=== PATIENT | female | born 2005 | race Caucasian/White ===

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

== ENCOUNTER 2024-11-06 17:19 | Emergency (ER) | payer SELFPAY ==
[2024-11-06 17:29] VITALS: BP 129/85; PULSE 83; RESP 16; TEMP 36.6; O2SAT 98; BMI 33.2
[2024-11-06 18:04] VITALS: BP 134/81; PULSE 108; RESP 20; O2SAT 100
--- NOTE | 2024-11-06 18:05 | ECG_ITS ---
[facility]: 2024[facility]06 Pat Name: Benita Mendez Department: Room: Gender: Female Principal Mechanical Engineer: : 2005 Requested By: Yimi Watkins Order Number: [id number] Margie MD: Yves Meek M.D. Measurements Intervals [place] Rate: 87 P: 18 WI: 133 QRS: 55 QRSD: 98 T: 52 QT: 377 QTc: 456 Interpretive Statements SINUS RHYTHM LOW QRS VOLTAGE IN PRECORDIAL LEADS [QRS DEFLECTION < 1.0 mV IN CHEST LEADS] Compared to ECG 08/22/2020 20:14:04 Low QRS voltage now present Electronically Signed On 11-07-2024 12:12:12 CARRIER OPERATOR by Yves Meek M.D. [id number]
--- NOTE | 2024-11-06 18:06 | XRR_ITS ---
PROCEDURE INFORMATION: Exam: XR Chest Exam date and time: 11/06/2024 6:34 PM Age: 19 years old Clinical indication: Pain; Cough; Chest pressure; Additional info: Chest pain, cough TECHNIQUE: Imaging protocol: Radiologic exam of the chest. Views: 1 view. COMPARISON: CR XR chest 2V* [id number] 08/22/2020 6:55 PM FINDINGS: Lungs: Unremarkable. No consolidation. Pleural spaces: Unremarkable. No pleural effusion. No pneumothorax. Heart/Mediastinum: Unremarkable. No cardiomegaly. Bones/joints: Unremarkable. XR/XR chest 1V portable [id number] IMPRESSION: No acute findings.
--- NOTE | 2024-11-06 18:22 | W.ED.CHESTPA ---
Documented by User: ANDRE Clark 11/06/24 20:05 HPI - Chest Pain General: Chief Complaint: Chest Pain Stated Complaint: chest pains sob light headed Time Seen by Provider: 11/06/24 17:36 Source: patient Mode of arrival: ambulatory Limitations: no limitations History of Present Illness: Patient is a 19-year-old female that presents to the emergency department for chest pain, shortness of breath, cough and diffuse abdominal pain. Patient states the chest pain started about 10:00 this morning and she does not have any active chest pain at this time. She states she was seen in this emergency department about 4 years ago with similar symptoms. She denies any history of recent surgeries. She denies any history of blood clots. She denies any calf pain or tenderness but states she has had some upper thigh pain from time to time. She reports some low back pain. She denies any pain or burning with urination or blood in her urine. She has had a cough but denies any fever or chills. She states she does have some chest wall tenderness but denies any rash or blistering. She also reports some diffuse abdominal tenderness. She denies any nausea or vomiting. She presents to the emergency department for further evaluation and treatment. Associated symptoms: Reports abdominal pain (Mild diffuse abdominal pain) and dyspnea; Deny fever(s), nausea or vomiting Related Data Previous Rx's ?Medication ?Instructions ?Recorded hydroxyzine HCl 25 mg tablet 25 - 50 mg (1 - 2 x 25 mg) PO TID 11/06/24 PRN anxiety #30 tabs Allergies Allergy/AdvReac Type Severity Reaction Status Date / Time No Known Allergies Allergy Verified 11/06/24 17:35 Review of Systems Const: Denies: fever(s) or chills Eyes: Denies: change in vision, photophobia or eye redness ENMT: Denies: throat pain, ear or mastoid pain or ear discharge Card: Reports: chest pain and lightheadedness; Denies: edema Resp: Reports: dyspnea and non-productive cough; Denies: wheezing or hemoptysis GI: Reports: abdominal pain (Mild diffuse abdominal pain); Denies: nausea, vomiting or hematemesis : Denies: flank pain or dysuria Musc: Reports: back pain (Low back); Denies: neck pain Skin/Breast: Denies: rash or erythema Neuro: Denies: headache(s), numbness in extremities or weakness in extremities Psych: Reports: anxiety Endo: Denies: polyuria or polydipsia Allan/Lymph: Denies: petechiae All/Imm: Denies: throat swelling or tongue swelling PFSH ED PFSH: Medical History (Updated 11/06/24 @ 19:58 by ANDRE Clark) Chest pain Surgical History (Updated 11/06/24 @ 18:29 by ANDRE Clark) No pertinent past surgical history Social History (Updated 11/06/24 @ 18:30 by ANDRE Clark) Smoking and tobacco/nicotine status: current every day tobacco/nicotine user Physical Exam Const: COMMON NORMALS: patient oriented x3, alert and well nourished GENERAL APPEARANCE: cooperative and anxious ORIENTATION/CONSCIOUSNESS: Yes awake, Yes oriented to person, Yes oriented to place and Yes oriented to time HENMT: COMMON NORMALS: normocephalic, atraumatic, EAC's normal, TM's normal bilaterally and Normal external nose present HEAD & SCALP: normocephalic and atraumatic FACE & SINUS: normal facial exam NOSE: Normal external nose present EXTERNAL AUDITORY CANAL: EAC's normal TYMPANIC MEMBRANE: TM's normal bilaterally MOUTH: Normal oral and palatal mucosa present THROAT: posterior oropharynx normal Eye: COMMON NORMALS: Equal, round and reactive pupils present, EOMs intact bilaterally and conjunctivae normal CONJUNCTIVA: Yes conjunctivae normal PUPIL: Yes Equal, round and reactive pupils present Neck/C-Spine: COMMON NORMALS: full ROM, no lymphadenopathy, supple and no meningeal signs Chest: CHEST: Yes tenderness sternum and other (Bilateral posterior ribs mildly tender) Resp: COMMON NORMALS: normal respiratory effort and clear to auscultation bilaterally EFFORT & INSPECTION: Yes able to speak in complete sentences and No respiratory distress AUSCULTATION: clear to auscultation bilaterally, no crackles, no rales, no rhonchi and no wheezes Cardio: COMMON NORMALS: regular rhythm RATE: tachycardic (Patient is intermittently tachycardic and regular rate) RHYTHM: regular rhythm GI: COMMON NORMALS: Soft to palpation INSPECTION: No Anasarca PALPATION: Yes Soft to palpation, No Firmness to palpation present (GI), Yes Tenderness to palpation present (GI) (Mild diffuse abdominal tenderness with no guarding or rebound tenderness), No Guarding due to palpation present (GI) and No Rigid due to palpation RECTAL EXAM: deferred : COMMON NORMALS: Yes no CVA tenderness BLADDER/KIDNEY EXAM: Yes no CVA tenderness and No CVA tenderness Back/Pelvis: COMMON NORMALS: no CVA tenderness GENERAL BACK: No CVA tenderness LUMBAR SPINE/LOWER BACK: Yes lumbar spinal tenderness (Mild tenderness in the low back) and Yes paraspinal muscle tenderness Lumbar paraspinal muscle tenderness: bilateral Extremity: COMMON NORMALS: normal to inspection, full ROM, no calf tenderness and no pedal edema Neuro: COMMON NORMALS: patient oriented x3, CN's II-XII intact bilaterally, moves all extremities, no focal motor deficits and no sensory deficits noted SENSORIUM/ORIENTATION: Yes alert, Yes oriented to person, Yes oriented to place and Yes oriented to time MENINGEAL SIGNS: Yes no meningeal signs and No nuccal rigidity COORDINATION/BALANCE: [id number] test normal SPEECH: speech normal SENSORY EXAM: Yes extremities MOTOR EXAM: 5/5 motor strength present throughout and Pronator motor function not present COORDINATION: [id number]-gk-noop test normal Psych: COMMON NORMALS: cooperative, speech normal, denies homicidal ideation and denies suicidal ideation ATTITUDE: Yes calm SPEECH: Yes normal speech MOOD & AFFECT: Yes anxious (Mild) and No tearful Skin: COMMON NORMALS: no rashes or lesions noted, no wounds, no jaundice and no petechiae GENERAL SKIN EXAM: no rashes or lesions noted Course ED course: I discussed the case with Dr. Medley. He recommended getting a D-dimer since patient is low risk for PE and if that is negative she can be ruled out for PE. Vital Signs: Vital signs: Vital Signs Temperature 97.9 F 11/06/24 17:29 Pulse Rate 89 11/06/24 20:18 Respiratory Rate 16 11/06/24 20:18 Blood Pressure 134/75 11/06/24 20:18 Pulse Oximetry 96 11/06/24 20:18 Oxygen Delivery Me thod Room Air 11/06/24 20:00 MDM - Chest Pain Medical Decision Making Patient was advised of the exam, lab and imaging findings. The patient does not have an elevated white blood cell count. She was afebrile here in the emergency department. She does have some chest wall tenderness on exam. She was very anxious when she came in but that resolved after the medications. Patient's oxygen saturation has been between 98 to 100% on room air. Patient has no respiratory distress and had no wheezing on exam. Thankfully, her influenza test was negative but her COVID test did come back positive. She states she has had the cough for about 3 days. I recommended that she self quarantine and use a mask for a total of 5 days from the time her symptoms began. She may return to work at that point if she remains fever free for 24 hours prior to return and she continues to use a mask for full 10 days from the time her symptoms prescribed started. I recommended she use the hydroxyzine as directed for anxiety. She states she currently does not have a primary care provider but her friend is here with her states that they can get her in with her doctor for further evaluation and treatment. EKG did not show any sign of ST elevation and troponin was negative. D-dimer was also negative. Patient's heart rate has come down to normal after the medications. The patient expressed understanding of all discharge instructions. Medical Records I reviewed the patient's medical records. Lab Data I reviewed the patient's lab results. 11/06/24 18:23 11/06/24 18:23 Laboratory Results WBC 9.18 10^3/uL (3.29-11.43) 11/06/24 18:23 RBC 4.94 10^6/uL (3.85-5.65) 11/06/24 18:23 Hgb 14.00 g/dL (11.27-16.99) 11/06/24 18:23 Hct 41.8 % (36-47) 11/06/24 18:23 MCV 84.6 fl (85-98) L 11/06/24 18:23 MCH 28.3 pg (27-33) 11/06/24 18:23 MCHC 33.5 g/dL (30-55) 11/06/24 18:23 RDW 12.3 % (12.1-15.1) 11/06/24 18:23 Plt Count 355 10^3/cmm (157-399) 11/06/24 18:23 MPV 10.4 fL (7.4-10.4) 11/06/24 18:23 Neut % (Auto) 58.5 % 11/06/24 18:23 Lymph % (Auto) 32.7 % 11/06/24 18:23 Colleton % (Auto) 6.3 % 11/06/24 18:23 Eos % (Auto) 1.9 % 11/06/24 18:23 Baso % (Auto) 0.3 % 11/06/24 18:23 Neut # (Auto) 5.37 10^3/uL (1.8-7.7) 11/06/24 18:23 Lymph # (Auto) 3.0 10^3/uL (0.8-4.8) 11/06/24 18:23 Colleton # (Auto) 0.6 10^3/uL (0.2-0.9) 11/06/24 18:23 Eos # (Auto) 0.2 10^3/uL (0.0-0.8) 11/06/24 18:23 Baso # (Auto) 0.0 10^3/uL (0.0-0.1) 11/06/24 18:23 Nucleated RBC % (auto) 0 % 11/06/24 18: Nucleated RBCs # 0.0 /100WBC 11/06/24 18:23 D-Dimer <= 0.27 ug/mLFEU (0-0.59) 11/06/24 18:23 Sodium 140 mmol/L (136-145) 11/06/24 18:23 Potassium 3.9 mmol/L (3.5-5.1) 11/06/24 18:23 Chloride 104 mmol/L (98-107) 11/06/24 18:23 Carbon Dioxide 22 mmol/L (22-29) 11/06/24 18:23 Anion Gap 17.9 (5-19) 11/06/24 18:23 BUN 8 mg/dL (6-20) 11/06/24 18:23 Creatinine 0.8 mg/dL (0.5-0.9) 11/06/24 18:23 GFR Calculation 90.5 mL/min (90-130) 11/06/24 18:23 Glucose 105 mg/dL (65-115) 11/06/24 18:23 Calculated Osmolality 289 mOsm/kg (285-295) 11/06/24 18:23 Calcium 9.8 mg/dL (8.5-10.5) 11/06/24 18:23 Total Bilirubin 0.4 mg/dL (0.15-1.2) 11/06/24 18:23 AST 22 U/L (0-32) 11/06/24 18:23 ALT 16 U/L (0-33) 11/06/24 18:23 Alkaline Phosphatase 90 U/L (35-105) 11/06/24 18: Troponin T Baseline < 6 ng/L (0-10) 11/06/24 18:23 Total Protein 8.3 g/dL (6.6-8.7) 11/06/24 18: Albumin 4.7 g/dL (3.5-5.2) 11/06/24 18: Globulin 3.6 g/dL (1.3-4.6) 11/06/24 18: Lipase 19 U/L (13-60) 11/06/24 18:23 HCG, Qual Negative (Negative) 11/06/24 18: Urine Color Yellow (Yellow) 11/06/24 18:49 Urine Appearance Cloudy (CLEAR) A 11/06/24 18:49 Urine pH 6.0 (5-7) 11/06/24 18:49 Ur Specific Morton 1.028 (1.005-1.030) 11/06/24 18:49 Urine Protein Negative (Negative) 11/06/24 18:49 Urine Glucose (UA) Negative (Normal) 11/06/24 18:49 Urine Ketones Trace (Negative) 11/06/24 18:49 Urine Blood 1+ (Negative) A 11/06/24 18:49 Urine Nitrate Negative (Negative) 11/06/24 18:49 Urine Bilirubin Negative (Negative) 11/06/24 18:49 Urine Urobilinogen 1.0 mg/dL (Negative) 11/06/24 18:49 Ur Leukocyte Esterase Negative (Negative) 11/06/24 18:49 Urine RBC 10-15 /hpf (0-2) H 11/06/24 18:49 Urine WBC 5-10 /hpf (0-5) H 11/06/24 18:49 Ur Squamous Epith Cells 25-40 /hpf (0-5) H 11/06/24 18:49 Amorphous Sediment Not Reportable 11/06/24 18:49 Urine Bacteria 1+ /hpf (NONE) H 11/06/24 18:49 Urine Mucus 2+ /hpf 11/06/24 18:49 Influenza A (PCR) Negative (Negative) 11/06/24 18:23 Influenza Type B (PCR) Negative (Negative) 11/06/24 18:23 RSV (PCR) Negative (Negative) 11/06/24 18:23 SARS-CoV-2 (PCR) Positive (Negative) A 11/06/24 18:23 EKG Data EKG 1: I personally reviewed and interpreted this EKG as follows: Prior EKG tracings: available for review Interpretation: Rate 87, sinus rhythm, low QRS voltage in precordial leads, normal axis, no ST elevation, depression or other signs of acute ischemia. Critical Care Time Critical Care Time: Critical Care Time: No Discharge Plan Discharge Patient Disposition: Home Clinical Impression: Atypical chest pain, Shortness of breath, Chest wall tenderness, Abdominal pain, diffuse, COVID-19 virus infection Condition: Stable Prescriptions: New hydroxyzine HCl 25 mg tablet 25 - 50 mg PO TID PRN (Reason: anxiety) Qty: 30 0RF Discharge Orders: Discharge ED (Routine); Ordered 11/06/24 Ordered By: Yimi Watkins Referrals: Diego Alfonso Jr, MD [Primary Care Provider] - Discharge Diet: Usual diet Patient Instructions: Abdominal Pain (ED), Shortness of Breath (ED), COVID-19 (Coronavirus Disease 2019) (ED), Face Coverings (Masks) and COVID-19 (ED), Opioid Safety, Pain Management Activity Restrictions/Additional Instructions: Take the prescription medicine as directed. Your prescription was sent electronically to [facility] pharmacy in [place]. [id number] Tylenol or ibuprofen as directed for fever and/or bodyaches. Self quarantine for total of 5 days after your symptoms first began. You may leave self quarantine while still wearing a mask if you are fever free for 24 hours. Wear a good quality mask for total of 10 days from the time your symptoms first began. Wveq-nlg-fybnrtz vitamin C, D and zinc can sometimes help alleviate the symptoms. Follow-up with a local doctor for further evaluation and treatment. Return to the emergency department with any worsening symptoms. Stand Alone Forms: Work/School Release Print Language: Nicaraguan Coding Level of Care Code ED Development Specialist for Savannahg Kwame Documented by User: Gustavo Medley MD 11/06/24 20:22 HPI - Chest Pain General: Chief Complaint: Chest Pain Stated Complaint: chest pains sob light headed Time Seen by Provider: 11/06/24 17:36 Related Data Previous Rx's ?Medication ?Instructions ?Recorded hydroxyzine HCl 25 mg tablet 25 - 50 mg (1 - 2 x 25 mg) PO TID 11/06/24 PRN anxiety #30 tabs Allergies Allergy/AdvReac Type Severity Reaction Status Date / Time No Known Allergies Allergy Verified 11/06/24 17:35 PFSH ED PFSH: Medical History (Updated 11/06/24 @ 19:58 by ANDRE Clark) Chest pain Surgical History (Updated 11/06/24 @ 18:29 by ANDRE Clark) No pertinent past surgical history Social History (Updated 11/06/24 @ 18:30 by ANDRE Clark) Smoking and tobacco/nicotine status: current every day tobacco/nicotine user Course Vital Signs: Vital signs: Vital Signs Temperature 97.9 F 11/06/24 17:29 Pulse Rate 89 11/06/24 20:18 Respiratory Rate 16 11/06/24 20:18 Blood Pressure 134/75 11/06/24 20:18 Pulse Oximetry 96 11/06/24 20:18 Oxygen Delivery Me thod Room Air 11/06/24 20:00 MDM - Chest Pain Lab Data 11/06/24 18:23 11/06/24 18:23 Laboratory Results WBC 9.18 10^3/uL (3.29-11.43) 11/06/24 18:23 RBC 4.94 10^6/uL (3.85-5.65) 11/06/24 18:23 Hgb 14.00 g/dL (11.27-16.99) 11/06/24 18:23 Hct 41.8 % (36-47) 11/06/24 18:23 MCV 84.6 fl (85-98) L 11/06/24 18:23 MCH 28.3 pg (27-33) 11/06/24 18:23 MCHC 33.5 g/dL (30-55) 11/06/24 18:23 RDW 12.3 % (12.1-15.1) 11/06/24 18:23 Plt Count 355 10^3/cmm (157-399) 11/06/24 18:23 MPV 10.4 fL (7.4-10.4) 11/06/24 18:23 Neut % (Auto) 58.5 % 11/06/24 18:23 Lymph % (Auto) 32.7 % 11/06/24 18:23 Colleton % (Auto) 6.3 % 11/06/24 18:23 Eos % (Auto) 1.9 % 11/06/24 18:23 Baso % (Auto) 0.3 % 11/06/24 18:23 Neut # (Auto) 5.37 10^3/uL (1.8-7.7) 11/06/24 18:23 Lymph # (Auto) 3.0 10^3/uL (0.8-4.8) 11/06/24 18:23 Colleton # (Auto) 0.6 10^3/uL (0.2-0.9) 11/06/24 18:23 Eos # (Auto) 0.2 10^3/uL (0.0-0.8) 11/06/24 18:23 Baso # (Auto) 0.0 10^3/uL (0.0-0.1) 11/06/24 18:23 Nucleated RBC % (auto) 0 % 11/06/24 18: Nucleated RBCs # 0.0 /100WBC 11/06/24 18:23 D-Dimer <= 0.27 ug/mLFEU (0-0.59) 11/06/24 18:23 Sodium 140 mmol/L (136-145) 11/06/24 18:23 Potassium 3.9 mmol/L (3.5-5.1) 11/06/24 18:23 Chloride 104 mmol/L (98-107) 11/06/24 18:23 Carbon Dioxide 22 mmol/L (22-29) 11/06/24 18:23 Anion Gap 17.9 (5-19) 11/06/24 18:23 BUN 8 mg/dL (6-20) 11/06/24 18:23 Creatinine 0.8 mg/dL (0.5-0.9) 11/06/24 18:23 GFR Calculation 90.5 mL/min (90-130) 11/06/24 18: Glucose 105 mg/dL (65-115) 11/06/24 18: Calculated Osmolality 289 mOsm/kg (285-295) 11/06/24 18:23 Calcium 9.8 mg/dL (8.5-10.5) 11/06/24 18:23 Total Bilirubin 0.4 mg/dL (0.15-1.2) 11/06/24 18: AST 22 U/L (0-32) 11/06/24 18:23 ALT 16 U/L (0-33) 11/06/24 18:23 Alkaline Phosphatase 90 U/L (35-105) 11/06/24 18:23 Troponin T Baseline < 6 ng/L (0-10) 11/06/24 18:23 Total Protein 8.3 g/dL (6.6-8.7) 11/06/24 18:23 Albumin 4.7 g/dL (3.5-5.2) 11/06/24 18:23 Globulin 3.6 g/dL (1.3-4.6) 11/06/24 18:23 Lipase 19 U/L (13-60) 11/06/24 18:23 HCG, Qual Negative (Negative) 11/06/24 18: Urine Color Yellow (Yellow) 11/06/24 18:49 Urine Appearance Cloudy (CLEAR) A 11/06/24 18:49 Urine pH 6.0 (5-7) 11/06/24 18:49 Ur Specific Morton 1.028 (1.005-1.030) 11/06/24 18:49 Urine Protein Negative (Negative) 11/06/24 18:49 Urine Glucose (UA) Negative (Normal) 11/06/24 18:49 Urine Ketones Trace (Negative) 11/06/24 18:49 Urine Blood 1+ (Negative) A 11/06/24 18:49 Urine Nitrate Negative (Negative) 11/06/24 18:49 Urine Bilirubin Negative (Negative) 11/06/24 18:49 Urine Urobilinogen 1.0 mg/dL (Negative) 11/06/24 18:49 Ur Leukocyte Esterase Negative (Negative) 11/06/24 18:49 Urine RBC 10-15 /hpf (0-2) H 11/06/24 18:49 Urine WBC 5-10 /hpf (0-5) H 11/06/24 18:49 Ur Squamous Epith Cells 25-40 /hpf (0-5) H 11/06/24 18:49 Amorphous Sediment Not Reportable 11/06/24 18:49 Urine Bacteria 1+ /hpf (NONE) H 11/06/24 18:49 Urine Mucus 2+ /hpf 11/06/24 18:49 Influenza A (PCR) Negative (Negative) 11/06/24 18:23 Influenza Type B (PCR) Negative (Negative) 11/06/24 18:23 RSV (PCR) Negative (Negative) 11/06/24 18:23 SARS-CoV-2 (PCR) Positive (Negative) A 11/06/24 18:23 All radiology interpretation(s) finalized by discharge Discharge Plan Discharge Patient Disposition: Home Clinical Impression: Atypical chest pain, Shortness of breath, Chest wall tenderness, Abdominal pain, diffuse, COVID-19 virus infection Condition: Stable Prescriptions: New hydroxyzine HCl 25 mg tablet 25 - 50 mg PO TID PRN (Reason: anxiety) Qty: 30 0RF Discharge Orders: Discharge ED (Routine); Ordered 11/06/24 Ordered By: Yimi Watkins Referrals: Diego Alfonso Jr, MD [Primary Care Provider] - Discharge Diet: Usual diet Patient Instructions: Abdominal Pain (ED), Shortness of Breath (ED), COVID-19 (Coronavirus Disease 2019) (ED), Face Coverings (Masks) and COVID-19 (ED), Opioid Safety, Pain Management Activity Restrictions/Additional Instructions: Take the prescription medicine as directed. Your prescription was sent electronically to [facility] pharmacy in [place]. [id number] Tylenol or ibuprofen as directed for fever and/or bodyaches. Self quarantine for total of 5 days after your symptoms first began. You may leave self quarantine while still wearing a mask if you are fever free for 24 hours. Wear a good quality mask for total of 10 days from the time your symptoms first began. Vgge-glr-dufpkpn vitamin C, D and zinc can sometimes help alleviate the symptoms. Follow-up with a local doctor for further evaluation and treatment. Return to the emergency department with any worsening symptoms. Stand Alone Forms: Work/School Release Print Language: Nicaraguan Coding Level of Care Code ED Development Specialist for Chai Puente
[2024-11-06 18:42] LABS: Basophils % 0.3 %; Eosinophils # 0.2 10^3/uL (0.0-0.8); Eosinophils % 1.9 %; Hematocrit 41.8 % (36-47); Lymphocytes % 32.7 %; Mean Corpuscular HGB Conc 33.5 g/dL (30-55); Mean Corpuscular Hemoglobin 28.3 pg (27-33); Mean Corpuscular Volume 84.6 fl (85-98); Mean Platelet Volume 10.4 fL (7.4-10.4); Monocytes # 0.6 10^3/uL (0.2-0.9); Monocytes % 6.3 %; Neutrophils # 5.37 10^3/uL (1.8-7.7); Neutrophils % 58.5 %; Nucleated Red Blood Cells % 0 %; Platelet Count 355 10^3/cmm (157-399); Red Blood Count 4.94 10^6/uL (3.85-5.65); Red Cell Distribution Width 12.3 % (12.1-15.1); White Blood Count 9.18 10^3/uL (3.29-11.43)
[2024-11-06 18:55] LABS: HCG, Serum Qual Negative (Negative)
[2024-11-06 18:58] LABS: Troponin(5th) Baseline < 6 ng/L (0-10)
[2024-11-06 19:00] VITALS: BP 130/87; PULSE 79; RESP 16; O2SAT 98
[2024-11-06] MEDS: LORazepam 2 mg/mL INJ 1 mL 1 MG IVP (19:04)
[2024-11-06 19:08] LABS: D Dimer <= 0.27 ug/mLFEU (0-0.59)
[2024-11-06 19:20] LABS: Bilirubin Urine Negative (Negative); Blood Urine 1+ (Negative); Glucose Urine UA Negative (Normal); Ketones Urine Trace (Negative); Leukocyte Esterase Urine Negative (Negative); Nitrate Urine Negative (Negative); Protein Urine Negative (Negative); Specific Gravity, Urine 1.028 (1.005-1.030); Urine Appearance Cloudy (CLEAR); Urine Color Yellow (Yellow)
[2024-11-06 19:23] LABS: Influenza A NEGATIVE (Negative); Influenza B NEGATIVE (Negative); Respiratory Syncytial Virus Ce NEGATIVE (Negative)
[2024-11-06 19:28] LABS: SARS-CoV-2 PCR Positive (Negative)
[2024-11-06 19:33] LABS: Add Urine Culture? No; Add Urine Microscopic? YES; Bacteria Urine 1+ /hpf; Mucus Urine 2+ /hpf; Squamous Epithelial Cell Urine 25-40 /hpf (0-5)
[2024-11-06 19:43] LABS: Alanine Aminotransferase 16 U/L (0-33); Albumin Level 4.7 g/dL (3.5-5.2); Alkaline Phosphatase 90 U/L (35-105); Anion Gap 17.9 (5-19); Aspartate Amino Transferase 22 U/L (0-32); Blood Urea Nitrogen 8 mg/dL (6-20); Calcium 9.8 mg/dL (8.5-10.5); Carbon Dioxide 22 mmol/L (22-29); Chloride 104 mmol/L (98-107); Globulin 3.6 g/dL (1.3-4.6); Glomerular Filtration Rate 90.5 mL/min (90-130); Glucose 105 mg/dL (65-115); Lipase 19 U/L (13-60); Osmolality Calculated 289 mOsm/kg (285-295); Potassium 3.9 mmol/L (3.5-5.1); Sodium 140 mmol/L (136-145); Total Bilirubin 0.4 mg/dL (0.15-1.2); Total Protein 8.3 g/dL (6.6-8.7)
[2024-11-06 20:00] VITALS: BP 121/70; PULSE 83; RESP 16; O2SAT 97
[2024-11-06 20:18] VITALS: BP 134/75; PULSE 89; RESP 16; O2SAT 96
== END 2024-11-06 20:16 | disposition home or self-care (01) ==
PROVIDERS: Emergency Provider Physician Assistant; PCP Pediatrics Adolescent Medicine
DX: R07.89 Other chest pain (principal); R06.02 Shortness of breath; R10.9 Unspecified abdominal pain; U07.1 COVID-19; Z72.0 Tobacco use
CPT/HCPCS: 12345; 36415; 71045; 80053; 81001; 83690; 84484; 84703; 85025; 85378; 87637; 93005; 96374; 99285; J2060

== ENCOUNTER 2025-01-09 10:01 | Emergency (ER) | payer SELFPAY ==
[2025-01-09 10:06] VITALS: BP 134/79; PULSE 95; RESP 14; TEMP 36.4; O2SAT 99; BMI 34.0
--- NOTE | 2025-01-09 10:16 | ED_ITS ---
HPI - Dental/Oral General: Chief complaint: Dental/Oral Stated complaint: R side tooth pain Time Seen by Provider: 01/09/25 10:06 History of Present Illness: 19-year-old female presents with right s ided dental pain in her upper teeth. She does have a abnormal tooth. Reports been hurting for about 3 days. Patient has not followed up with a dentist. Associated symptoms: Denies fever(s) Related Data Previous Rx's ?Medication ?Instructions ?Recorded hydroxyzine HCl 25 mg tablet 25 - 50 mg (1 - 2 x 25 mg ) PO TID 11/06/24 PRN anxiety #30 tabs penicillin V potassium 500 mg 500 mg PO TID 10 days #3 0 tabs 01/09/25 tablet Allergies Allergy/AdvReac Type Severity Reaction Status Date / Time No Known Allergies Allergy Verified 11/06/24 17:35 Review of Systems Const: Denies: fever(s) or chills ENMT: Reports: dental pain Card: Denies: chest pain or palpitations Resp: Denies: dyspnea GI: Denies: abdominal pain, nausea or vomiting Musc: Denies: neck pain or back pain Skin/Breast: Denies: rash PFSH ED PFSH: Medical History (Updated 01/09/25 @ 10:19 by Yimi Doan DO) Chest pain Surgical History (Updated 11/06/24 @ 18:29 by ANDRE Clark) No pertinent past surgical history Social History (Updated 11/06/24 @ 18:30 by ANDRE Clark) Smoking and tobacco/nicotine status: current every day tobacco/nicotine user Physical Exam Const: COMMON NORMALS: no acute distress, average body habitus and patient oriented x3 HENMT: TEETH & GINGIVA: Yes abnormal tooth and associated gingiva Resp: COMMON NORMALS: normal respiratory effort and clear to auscultation bilaterally AUSCULTATION: clear to auscultation bilaterally Cardio: COMMON NORMALS: regular rate and regular rhythm RATE: regular rate RHYTHM: regular rhythm Extremity: COMMON NORMALS: normal to inspection, full ROM and capillary refill normal Neuro: COMMON NORMALS: patient oriented x3 Skin: COMMON NORMALS: no rashes or lesions noted and turgor normal GENERAL SKIN EXAM: no rashes or lesions noted and turgor normal Course Vital Signs: Vital signs: Vital Signs Temperature 97.5 F L 01/09/25 10:06 Pulse Rate 88 01/09/25 10:29 Respiratory Rate 14 01/09/25 10:06 Blood Pressure 134/79 01/09/25 10:29 Pulse Oximetry 97 01/09/25 10:29 Oxygen Delivery Me thod Room Air 01/09/25 10:06 MDM - Dental/Oral Medical Decision Making Patient with abnormal tooth growth on the right upper that needs to be addressed by a dentist. There is no obvious abscess noted. I will start her on am oxicillin and recommended jayn-dba-wkzvcgn Orajel along with ibuprofen gel, puncture and put gel directly on the teeth. Can also use clove oil. She needs to follow-up with dentist as soon as possible for definitive care. She is stable and discharged home No radiology studies performed this visit Discharge Plan Discharge Patient Disposition: Home Clinical Impression: Toothache, Abnormal tooth position Condition: Stable Prescriptions: New penicillin V potassium 500 mg tablet 500 mg PO TID 10 Days Qty: 30 0RF No Action hydroxyzine HCl 25 mg tablet 25 - 50 mg PO TID PRN (Reason: anxiety) Qty: 30 0RF Discharge Orders: Discharge ED (Routine); Ordered 01/09/25 Ordered By: Yimi Doan Referrals: Diego Alfonso Jr, MD [Primary Care Provider, Pediatrics] Discharge Diet: Usual diet Discharge Activity: Resume usual activity Patient Instructions: Toothache (ED), Opioid Safety, Pain Management Activity Restrictions/Additional Instructions: You may use hfgc-csk-mzlvuab lidocaine rinse or gel along with clove oil. Ibuprofen gelcaps, puncture and placed the gel directly on the tooth. Please follow-up with a dentist as soon as possible for definitive care. Please take antibiotics as prescribed. Print Language: Persian Coding Level of Care Code ED Power Sewing Machine Operator for Chai Puente
[2025-01-09 10:29] VITALS: BP 134/79; PULSE 88; O2SAT 97
== END 2025-01-09 10:30 | disposition home or self-care (01) ==
PROVIDERS: Emergency Provider Student in an Organized Health Care Education/Training Program; PCP Pediatrics Adolescent Medicine
DX: K08.89 Other specified disorders of teeth and supporting structures (principal); M26.30 Unspecified anomaly of tooth position of fully erupted tooth or teeth; Z72.0 Tobacco use
CPT/HCPCS: 99283

== ENCOUNTER 2025-07-24 13:16 | Emergency (ER) | payer MEDICAID, SELFPAY ==
[2025-07-24 13:19] VITALS: BP 141/86; PULSE 90; TEMP 36.9; O2SAT 98
--- NOTE | 2025-07-24 13:20 | XRR_ITS ---
PROCEDURE INFORMATION: Exam: XR Chest Exam date and time: 07/24/2025 1:21 PM Age: 20 years old Clinical indication: Pain; Chest pressure; Additional info: Chest pain TECHNIQUE: Imaging protocol: Radiologic exam of the chest. Views: 1 view. COMPARISON: CR (CHEST, ) 11/06/2024 6:34 PM FINDINGS: Lungs: Lungs are clear bilaterally. Pleural spaces: No pleural effusion. No pneumothorax. Heart/Mediastinum: The cardiac silhouette and mediastinal contours are unremarkable. Bones/joints: Unremarkable for age. XR/XR chest 1V portable [id number] IMPRESSION: Negative chest radiograph.
--- NOTE | 2025-07-24 13:20 | ECG_ITS ---
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 Measurements Intervals Henry Rate: 80 P: 3 AK: 141 QRS: 44 QRSD: 85 T: 44 QT: 382 QTc: 441 Interpretive Statements SINUS RHYTHM Compared to ECG 11/06/2024 17:24:50 No significant changes Electronically Signed On 07-24-2025 14:58:22 STOCKROOM KEEPER by Amilcar Asher M.D. [email or web address]
[2025-07-24] MEDS: ondansetron 2 mg/ML SDV 2 mL 4 MG IVP (13:56)
[2025-07-24 14:00] VITALS: BP 127/79; PULSE 86; RESP 15; O2SAT 100
--- NOTE | 2025-07-24 14:05 | W.ED.GENADLT ---
HPI - General Adult General: Chief complaint: Upper Respiratory Infection Stated complaint: CP Time Seen by Provider: 07/24/25 13:34 Source: patient Mode of arrival: ambulatory Limitations: no limitations History of Present Illness: 20-year-old female states that over the last 2 days she has not been feeling well states she has had some off-and-on chest pain she been having nausea vomiting. Patient states she went to urgent care and they did swab her for strep and they stated it was positive and sent her here as she has been having the vomiting. States her chest pain is intermittent denies any pain currently she denies any fevers Related Data Previous Rx's ?Medication ?Instructions ?Recorded hydroxyzine HCl 25 mg tablet 25 - 50 mg (1 - 2 x 25 mg) PO TID 11/06/24 PRN anxiety #30 tabs cephalexin 500 mg capsule 500 mg PO TID 7 days #21 caps 07/24/25 ondansetron 4 mg disintegrating 4 mg PO Q6H PRN nausea and 07/24/25 tablet vomiting #14 tabs Allergies Allergy/AdvReac Type Severity Reaction Status Date / Time No Known Allergies Allergy Verified 07/24/25 13:27 [facility] PFSH: Medical History Chest pain Surgical History (Updated 11/06/24 @ 18:29 by ANDRE Clark) No pertinent past surgical history Social History Smoking and tobacco/nicotine status: current every day tobacco/nicotine user Physical Exam Const: COMMON NORMALS: no acute distress, patient oriented x3 and healthy appearing HENMT: COMMON NORMALS: normocephalic and atraumatic HEAD & SCALP: normocephalic and atraumatic THROAT: posterior oropharynx normal Neck/C-Spine: COMMON NORMALS: full ROM and supple Chest: COMMONS NORMALS: normal inspection of the chest Resp: COMMON NORMALS: normal respiratory effort, No retractions, No use of accessory muscles and clear to auscultation bilaterally AUSCULTATION: clear to auscultation bilaterally Cardio: COMMON NORMALS: regular rate, regular rhythm and No murmurs present (Cardio) RATE: regular rate RHYTHM: regular rhythm GI: COMMON NORMALS: Normal to inspection, nondistended, normoactive bowel sounds present, Soft to palpation, non-tender and no masses PALPATION: Yes Soft to palpation Extremity: COMMON NORMALS: normal to inspection and full ROM Neuro: COMMON NORMALS: patient oriented x3, moves all extremities and no focal motor deficits Psych: COMMON NORMALS: mental status grossly normal, Normal thought process present and cooperative THOUGHT PROCESS: Normal thought process present Skin: COMMON NORMALS: no rashes or lesions noted and no wounds GENERAL SKIN EXAM: no rashes or lesions noted Course Vital Signs: Vital signs: Vital Signs Temperature 98.5 F 07/24/25 13:19 Pulse Rate 86 07/24/25 14:00 Respiratory Rate 15 07/24/25 14:00 Blood Pressure 127/79 07/24/25 14:00 Pulse Oximetry 100 07/24/25 14:00 Oxygen Delivery Me thod Room Air 07/24/25 13:19 MDM - General Adult Medical Decision Making 20-year-old female sent here from urgent care did test positive for strep there but sent here due to intermittent chest pain and vomiting. Differential includes viral syndrome, pneumonia. Patient's been well-appearing here chest x-ray was reviewed by me showed no acute abnormalities lab work showed no significant abnormalities no signs of sepsis. Abdominal exam here is benign no signs of acute abdominal pathology. She feels much improved here after [facility] EKG interpreted by me showed normal sinus rhythm heart rate [address] elevation QRS 85 QTc 417. Will prescribe her Zofran for home did go over findings of labs EKG and imaging with her. She is stable for discharge follow-up with PCP will write her prescription for Keflex for her positive strep at the urgent care she understands agrees to plan n. Will prescribe her Zofran for home. Chest pain is atypical no signs of pulmonary embolism or ACS. Medical Records I reviewed the patient's medical records. Lab Data I reviewed the patient's lab results. 07/24/25 14:00 07/24/25 14:00 Radiology Impressions Chest X-Ray 07/24/25 13:20 IMPRESSION: Negative chest radiograph. Laboratory Results WBC 11.32 10^3/uL (3.29-11.43) 07/24/25 14:00 RBC 4.86 10^6/uL (3.85-5.65) 07/24/25 14:00 Hgb 14.10 g/dL (11.27-16.99) 07/24/25 14:00 Hct 41.6 % (36-47) 07/24/25 14:00 MCV 85.6 fl (85-98) 07/24/25 14:00 MCH 29.0 pg (27-33) 07/24/25 14:00 MCHC 33.9 g/dL (30-55) 07/24/25 14:00 RDW 12.1 % (12.1-15.1) 07/24/25 14:00 Plt Count 376 10^3/cmm (157-399) 07/24/25 14:00 MPV 10.7 fL (7.4-10.4) H 07/24/25 14:00 Neut % (Auto) 75.6 % 07/24/25 14:00 Lymph % (Auto) 17.9 % 07/24/25 14:00 [place] % (Auto) 5.2 % 07/24/25 14:00 Eos % (Auto) 0.5 % 07/24/25 14:00 Baso % (Auto) 0.4 % 07/24/25 14:00 Neut # (Auto) 8.56 10^3/uL (1.8-7.7) H 07/24/25 14:00 Lymph # (Auto) 2.0 10^3/uL (0.8-4.8) 07/24/25 14:00 [place] # (Auto) 0.6 10^3/uL (0.2-0.9) 07/24/25 14:00 Eos # (Auto) 0.1 10^3/uL (0.0-0.8) 07/24/25 14:00 Baso # (Auto) 0.0 10^3/uL (0.0-0.1) 07/24/25 14:00 Nucleated RBC % (auto) 0 % 07/24/25 14:00 Nucleated RBCs # 0.0 /100WBC 07/24/25 14:00 Sodium 140 mmol/L (136-145) 07/24/25 14:00 Potassium 3.9 mmol/L (3.5-5.1) 07/24/25 14:00 Chloride 105 mmol/L (98-107) 07/24/25 14:00 Carbon Dioxide 21 mmol/L (22-29) L 07/24/25 14:00 Anion Gap 17.9 (5-19) 07/24/25 14:00 BUN 7 mg/dL (6-20) 07/24/25 14:00 Creatinine 0.7 mg/dL (0.5-0.9) 07/24/25 14:00 GFR Calculation 104.6 mL/min (90-130) 07/24/25 14:00 Glucose 76 mg/dL (65-115) 07/24/25 14:00 Calculated Osmolality 287 mOsm/kg (285-295) 07/24/25 14:00 Calcium 9.8 mg/dL (8.5-10.5) 07/24/25 14:00 Total Bilirubin 0.6 mg/dL (0.15-1.2) 07/24/25 14:00 AST 17 U/L (0-32) 07/24/25 14:00 ALT 7 U/L (0-33) 07/24/25 14:00 Alkaline Phosphatase 77 U/L (35-105) 07/24/25 14:00 Total Protein 7.9 g/dL (6.6-8.7) 07/24/25 14:00 Albumin 4.6 g/dL (3.5-5.2) 07/24/25 14:00 Globulin 3.3 g/dL (1.3-4.6) 07/24/25 14:00 Lipase 15 U/L (13-60) 07/24/25 14:00 HCG, Qual Negative (Negative) 07/24/25 14:00 All radiology interpretation(s) finalized by discharge EKG Data EKG 1: I personally reviewed and interpreted this EKG as follows: EKG interpretation date: 07/24/25 EKG interpretation time: 13:21 Interpretation: nsr hr [address] elevation qrs 85 qtc 417 Computer generated interpretation: Chest X-Ray 07/24/25 13:20 IMPRESSION: Negative chest radiograph. Discharge Plan Discharge Patient Disposition: Home Clinical Impression: Vomiting, Upper respiratory infection Condition: Stable Prescriptions: New cephalexin 500 mg capsule 500 mg PO TID 7 Days Qty: 21 0RF ondansetron 4 mg tablet,disintegrating 4 mg PO Q6H PRN (Reason: nausea and vomiting) Qty: 14 0RF No Action hydroxyzine HCl 25 mg tablet 25 - 50 mg PO TID PRN (Reason: anxiety) Qty: 30 0RF Discharge Orders: Discharge ED (Routine); Ordered 07/24/25 Ordered By: Rachna Kincaid Referrals: Diego Alfonso Jr, MD [Primary Care Provider, Pediatrics] - 4-7 days Discharge Diet: Advance as tolerated Discharge Activity: Resume usual activity Patient Instructions: Strep Throat (ED), Acute Nausea and Vomiting (ED) Print Language: Polish Coding Level of Care Code ED Route [employer] for [employer] [facility]
[2025-07-24 14:06] LABS: Hematocrit 41.6 % (36-47); Hemoglobin 14.10 g/dL (11.27-16.99); Mean Corpuscular HGB Conc 33.9 g/dL (30-55); Mean Corpuscular Hemoglobin 29.0 pg (27-33); Mean Corpuscular Volume 85.6 fl (85-98); Nucleated Red Blood Cells % 0 %; Platelet Count 376 10^3/cmm (157-399); Red Blood Count 4.86 10^6/uL (3.85-5.65); White Blood Count 11.32 10^3/uL (3.29-11.43)
[2025-07-24 14:21] LABS: HCG, Serum Qual Negative (Negative)
[2025-07-24 14:28] LABS: Alanine Aminotransferase 7 U/L (0-33); Albumin Level 4.6 g/dL (3.5-5.2); Alkaline Phosphatase 77 U/L (35-105); Anion Gap 17.9 (5-19); Blood Urea Nitrogen 7 mg/dL (6-20); Calcium 9.8 mg/dL (8.5-10.5); Carbon Dioxide 21 mmol/L (22-29); Chloride 105 mmol/L (98-107); Globulin 3.3 g/dL (1.3-4.6); Glucose 76 mg/dL (65-115); Lipase 15 U/L (13-60); Osmolality Calculated 287 mOsm/kg (285-295); Potassium 3.9 mmol/L (3.5-5.1); Sodium 140 mmol/L (136-145); Total Protein 7.9 g/dL (6.6-8.7)
[2025-07-24 14:30] LABS: Aspartate Amino Transferase 17 U/L (0-32)
[2025-07-24 15:02] VITALS: BP 124/80; PULSE 87; O2SAT 98
== END 2025-07-24 15:05 | disposition home or self-care (01) ==
PROVIDERS: Emergency Provider Emergency Medicine; PCP Pediatrics Adolescent Medicine
DX: R11.10 Vomiting, unspecified (principal); J06.9 Acute upper respiratory infection, unspecified; Z72.0 Tobacco use
CPT/HCPCS: 36415; 71045; 80053; 83690; 84703; 85025; 93005; 96361; 96374; 99285; J2405; J7030